=== PATIENT | male | born 1955 | race Two or more races ===

== ENCOUNTER 2020-03-23 09:00 | Inpatient (IN) | payer OTHER ==
[~2020-03-23] VITALS: Ht 190.5 cm; Wt 108.0 kg
[2020-03-23] MEDS ORDERED: LOPRESS PO (14:44)
[2020-03-23] MEDS ORDERED: CRESTOR10 MG PO (14:44)
[2020-03-23] MEDS ORDERED: ASA81 MG PO (14:45)
[2020-03-23] MEDS ORDERED: PRILOSE (14:46)
[2020-03-23] MEDS ORDERED: PLAVIX75 MG PO (15:40)
[2020-03-30] MEDS ORDERED: METOPROLOL SUCC50 MG (13:33)
[2020-03-30] MEDS ORDERED: NABUMETONE750 MG (13:33)
[2020-03-30] MEDS ORDERED: DML FORTE CREA113 GM (13:34)
[2020-03-30] MEDS ORDERED: HALOBETASOL PRO15 GM (13:34)
[2020-03-30] MEDS ORDERED: GABAPENTIN100 M2 (13:34)
[2020-03-30] MEDS ORDERED: PRILOSEC10 M2 (13:36)
[2020-04-09] MEDS ORDERED: PERCOCET 5-3251 EACH PO (16:10)
[2020-04-09] MEDS ORDERED: INTEGRA PLUS C1 EACH PO (16:10)
[2020-04-09] MEDS ORDERED: XARELTO10 MG PO (16:10)
[2020-04-09] MEDS ORDERED: BACTRIM DS TAB1 EACH PO (16:10)
== END 2020-04-09 18:21 | DRG 470 ==
LOC: O/R 03-30 09:00 → SURH 03-30 09:00 → SURG 03-30 09:00 → SURH 03-30 14:30 → SURG 03-30 18:41
PROVIDERS: ADMIT Orthopaedic Surgery Sports Medicine; ATTEND Orthopaedic Surgery Sports Medicine
PROC: 0SRC0J9 Replacement of Right Knee Joint with Synthetic Substitute, Cemented, Open Approach (ICD-10-PCS; principal; 2020-03-30 14:30)
PROC: B44FZZZ Ultrasonography of Right Lower Extremity Arteries (ICD-10-PCS; 2020-04-02)
PROC: 30233N1 Transfusion of Nonautologous Red Blood Cells into Peripheral Vein, Percutaneous Approach (ICD-10-PCS; 2020-04-03)
PROC: 0JDN0ZZ Extraction of Right Lower Leg Subcutaneous Tissue and Fascia, Open Approach (ICD-10-PCS; 2020-04-07)
DX: M17.11 Unilateral primary osteoarthritis, right knee (principal); M96.840 Postprocedural hematoma of a musculoskeletal structure following a musculoskeletal system procedure; L03.115 Cellulitis of right lower limb; T84.53XA Infection and inflammatory reaction due to internal right knee prosthesis, initial encounter; I10 Essential (primary) hypertension; I25.10 Atherosclerotic heart disease of native coronary artery without angina pectoris; D64.9 Anemia, unspecified; Z95.5 Presence of coronary angioplasty implant and graft; Z20.822 Contact with and (suspected) exposure to COVID-19